=== PATIENT | female | born 1955 | race African-American/Black ===

== ENCOUNTER 2016-08-26 16:08 | Emergency (ER) | payer SELFPAY ==
[~2016-08-26] VITALS: Ht 167.6 cm; Wt 75.0 kg
[~2016-08-26 16:08] MED LIST: Z.0.NO CURRENT MEDS
[2016-08-26 16:10] VITALS: BP 120/80; PULSE 93; RESP 20; TEMP 98.5; O2SAT 96
--- NOTE | 2016-08-26 16:20 | PD ---
Physical Exam Time Seen by Provider: 16:16 Narrative 60yo F c/o BLE edema x 2 weeks. Sent by her PCP, Dr. Walter Stafford. Patient has prescription to r/o DVT. Reports paraesthesias to BLE especially for the last week. Denies diabetes. Patient seen in triage. VS reviewed. Awaiting bed placement. Data Data Last Documented VS Vital Signs Date Time Temp Pulse Resp B/P Pulse Ox O2 Delivery O2 Flow Rate FiO2 08/26/16 16:10 98.5 93 20 120/80 96 Room Air MDM Supervised Visit with THOMAS: Carol Vergara August 26, 2016 16:20
[2016-08-26] MEDS ORDERED: FURO20TA PO (17:14)
--- NOTE | 2016-08-26 17:20 | PD ---
HPI Chief Complaint: Edema Time Seen by Provider: 17:08 Travel History International Travel<30 days: No Contact w/Intl Traveler<30days: No Traveled to known affect area: No History of Present Illness HPI This is a 60-year-old female who presents for evaluation of bilateral lower extremity edema. Symptoms started 2 weeks ago. She endorses edema around her ankles, feet. She endorses occasional twinges of pain to her lower extremities. She denies any chest pain, shortness of breath, abdominal pain, nausea or vomiting. Denies any recent long travel or surgery. She does note that she has to travel on a daily basis to [place] for work. She was seen by a new primary care physician today, Dr. Walter Stafford, who has referred her here to rule out DVT according to the paper that she has from his office. She has a history of CHF and according to our records her last echo on our file was from 2009, ejection fraction 40-45%. She reports that she has been intermittently on Lasix for quite some time, seems to have been out of her Lasix 20 mg for at least 3 or 4 weeks. She has no other complaints. PFSH Past Medical History Cardiovascular Problems: Yes Congestive Heart Failure: Yes Diabetes: No Diminished Hearing: No Respiratory: Yes Past Surgical History Abdominal Surgery: Yes (C SEC X2) Section: Yes Social History Alcohol Use: No Tobacco Use: No Substance Use: No Allergies-Medications (Allergen,Severity, Reaction): Coded Allergies: No Known Allergies (Verified , 11/17/09) Reported Meds & Prescriptions Reported Meds & Active Scripts Active Reported Furosemide 20 Mg Tab 20 Mg PO DAILY Review of Systems Except as stated in HPI: all other systems reviewed are Neg Physical Exam Narrative GENERAL: Well-developed well-nourished female in no acute distress SKIN: Warm and dry. HEAD: Atraumatic. Normocephalic. EYES: Pupils equal and round. No scleral icterus. No injection or drainage. ENT: No nasal bleeding or discharge. Mucous membranes pink and moist. NECK: Trachea midline. No JVD. CARDIOVASCULAR: Regular rate and rhythm. No murmur appreciated. RESPIRATORY: No accessory muscle use. Clear to auscultation. Breath sounds equal bilaterally. GASTROINTESTINAL: Abdomen soft, non-tender, nondistended. Hepatic and splenic margins not palpable. MUSCULOSKELETAL: No obvious deformities. 1+ lower extremity tibial edema bilaterally. NEUROLOGICAL: Awake and alert. No obvious cranial nerve deficits. Motor grossly within normal limits. Normal speech. PSYCHIATRIC: Appropriate mood and affect; insight and judgment normal. Data Data Last Documented VS Vital Signs Date Time Temp Pulse Resp B/P Pulse Ox O2 Delivery O2 Flow Rate FiO2 08/26/16 18:20 92 16 118/78 98 Room Air 08/26/16 16:10 98.5 Orders Us Leg Venous Doppler Bilat (08/26/16 17:17) Complete Blood Count With Diff (08/26/16 17:17) Basic Metabolic Panel (Bmp) (08/26/16 17:17) Act Partial Throm Time (Ptt) (08/26/16 17:17) Prothrombin Time / Inr (Pt) (08/26/16 17:17) Labs Laboratory Tests Test 08/26/16 17:22 White Blood Count 5.6 TH/MM3 Red Blood Count 4.60 MIL/MM3 Hemoglobin 13.3 GM/DL Hematocrit 41.6 % Mean Corpuscular Volume 90.5 FL Mean Corpuscular Hemoglobin 29.0 PG Mean Corpuscular Hemoglobin 32.0 % Concent Red Cell Distribution Width 15.3 % Platelet Count 137 TH/MM3 Mean Platelet Volume 9.0 FL Neutrophils (%) (Auto) 51.2 % Lymphocytes (%) (Auto) 35.2 % Monocytes (%) (Auto) 8.9 % Eosinophils (%) (Auto) 3.6 % Basophils (%) (Auto) 1.1 % Neutrophils # (Auto) 2.9 TH/MM3 Lymphocytes # (Auto) 2.0 TH/MM3 Monocytes # (Auto) 0.5 TH/MM3 Eosinophils # (Auto) 0.2 TH/MM3 Basophils # (Auto) 0.1 TH/MM3 CBC Comment DIFF FINAL Differential Comment Prothrombin Time 13.4 SEC Prothromb Time International 1.2 RATIO Ratio Activated Partial 25.3 SEC Thromboplast Time Sodium Level 140 MEQ/L Potassium Level 3.7 MEQ/L Chloride Level 106 MEQ/L Carbon Dioxide Level 28.7 MEQ/L Anion Gap 5 MEQ/L Blood Urea Nitrogen 13 MG/DL Creatinine 0.68 MG/DL Estimat Glomerular Filtration 107 ML/MIN Rate Random Glucose 96 MG/DL Calcium Level 8.7 MG/DL [facility] Medical Decision Making Medical Screen Exam Complete: Yes Emergency Medical Condition: Yes Medical Record Reviewed: Yes Differential Diagnosis Dependent edema, CHF, bilateral DVT Narrative Course 60-year-old female with history of CHF who has been off of Lasix for at least 3 weeks. She presents with 2 weeks of bilateral lower extremity edema. She was sent here by Dr. Stafford to rule out bilateral DVT. Physical examination is reassuring. She has 1+ pitting edema to the lower extremities. She has no evidence of pulmonary edema. I suspect her edema is secondary to CHF. Plan would be to perform bilateral Doppler ultrasound of the legs. Ultrasound was negative. Lab work is reassuring. Stable for discharge. Diagnosis Primary Impression: Lower extremity edema Additional Instructions: Elevate the legs as needed. Compression stockings. Lasix as prescribed. Follow-up with your primary care physician. Return for any emergent medical conditions. Med/Other Pt SpecificInfo: No Change to Meds Disposition: 01 DISCHARGE HOME Condition: Stable Jamie Jacobsen August 26, 2016 17:20
[2016-08-26 17:43] LABS: AUTOMATED NEUTROPHIL # 2.9 TH/MM3 (1.8-7.7); BASOPHIL # 0.1 TH/MM3 (0-0.2); BASOPHIL % 1.1 % (0.0-2.0); EOSINOPHIL # 0.2 TH/MM3 (0-0.4); EOSINOPHIL % 3.6 % (0.0-4.0); HEMATOCRIT 41.6 % (35.0-46.0); HEMO FLAGS DIFF FINAL; LYMPH % 35.2 % (9.0-44.0); MEAN CELL VOLUME 90.5 FL (80.0-100.0); MONO % 8.9 % (0.0-8.0); NEUT % 51.2 % (16.0-70.0); PLATELET COUNT 137 TH/MM3 (150-450); RED CELL DISTRIBUTION WIDTH 15.3 % (11.6-17.2); WHITE BLOOD COUNT 5.6 TH/MM3 (4.0-11.0)
[2016-08-26 17:56] LABS: APTT (PATIENT) 25.3 SEC (24.3-30.1); INTERNATIONAL NORMALIZED RATIO 1.2 RATIO; PROTHROMBIN TIME - PATIENT 13.4 SEC (9.8-11.6)
--- NOTE | 2016-08-26 17:57 | PD ---
Physical Exam Narrative I, Dr. De Jesus, have reviewed the advance practice practitioner's documentation and am in agreement, met with the patient face to face, made the diagnosis, and the medical decision making was done by me. *My assessment and Findings: Bilateral lower extremity secondary to CHF vs. venous stasis vs. Bilateral DVT (very unlikely) 60yo F with CHF sent in by her new PMD Dr. Walter Stafford to the ED for US to r/o DVT. Pt denies any chest pain or sob. Will do US although unlikely that she has bilateral DVT. Labs reviewed, mild thrombocytopenia. US bilateral lower ext negative for DVT. Pt already has lasix that she picked up from pharmacy. Instructed pt to take her medication and follow up with her PMD. Data Data Last Documented VS Vital Signs Date Time Temp Pulse Resp B/P Pulse Ox O2 Delivery O2 Flow Rate FiO2 08/26/16 18:20 92 16 118/78 98 Room Air 08/26/16 16:10 98.5 Orders Us Leg Venous Doppler Bilat (08/26/16 17:17) Complete Blood Count With Diff (08/26/16 17:17) Basic Metabolic Panel (Bmp) (08/26/16 17:17) Act Partial Throm Time (Ptt) (08/26/16 17:17) Prothrombin Time / Inr (Pt) (08/26/16 17:17) Labs Laboratory Tests Test 08/26/16 17:22 White Blood Count 5.6 TH/MM3 Red Blood Count 4.60 MIL/MM3 Hemoglobin 13.3 GM/DL Hematocrit 41.6 % Mean Corpuscular Volume 90.5 FL Mean Corpuscular Hemoglobin 29.0 PG Mean Corpuscular Hemoglobin 32.0 % Concent Red Cell Distribution Width 15.3 % Platelet Count 137 TH/MM3 Mean Platelet Volume 9.0 FL Neutrophils (%) (Auto) 51.2 % Lymphocytes (%) (Auto) 35.2 % Monocytes (%) (Auto) 8.9 % Eosinophils (%) (Auto) 3.6 % Basophils (%) (Auto) 1.1 % Neutrophils # (Auto) 2.9 TH/MM3 Lymphocytes # (Auto) 2.0 TH/MM3 Monocytes # (Auto) 0.5 TH/MM3 Eosinophils # (Auto) 0.2 TH/MM3 Basophils # (Auto) 0.1 TH/MM3 CBC Comment DIFF FINAL Differential Comment Prothrombin Time 13.4 SEC Prothromb Time International 1.2 RATIO Ratio Activated Partial 25.3 SEC Thromboplast Time Sodium Level 140 MEQ/L Potassium Level 3.7 MEQ/L Chloride Level 106 MEQ/L Carbon Dioxide Level 28.7 MEQ/L Anion Gap 5 MEQ/L Blood Urea Nitrogen 13 MG/DL Creatinine 0.68 MG/DL Estimat Glomerular Filtration 107 ML/MIN Rate Random Glucose 96 MG/DL Calcium Level 8.7 MG/DL MDM Supervised Visit with THOMAS: Yes Diagnosis Primary Impression: Lower extremity edema Nazia De Jesus DO August 26, 2016 17:57
[2016-08-26 18:07] LABS: BICARBONATE 28.7 MEQ/L (21.0-32.0); POTASSIUM 3.7 MEQ/L (3.5-5.1)
[2016-08-26 18:20] VITALS: BP 118/78; PULSE 92; RESP 16; O2SAT 98
--- NOTE | 2016-08-26 20:14 | RADRPT ---
EXAM DATE/TIME: 08/26/2016 19:25 [facility] COMPARISON: US LEG BILATERAL VENOUS DOPPLER, November 17, 2009, 18:59. INDICATIONS : Bilateral leg edema. MEDICAL HISTORY : Congestive heart failure. Respiratory disorders. SURGICAL HISTORY : section. ENCOUNTER: Initial ACUITY: 1 week PAIN SCORE: 0/10 LOCATION: Bilateral leg. TECHNIQUE: Venous ultrasound of the left and right leg was performed from the inguinal ligament to the proximal calf. Real-time, color Doppler and spectral tracing, compression and augmentation techniques were us ed. FINDINGS: RIGHT LEG: There is normal compressibility of the deep venous system from the inguinal region to the proximal ca lf. No echogenic clot is seen in the lumen of the common femoral, femoral, popliteal, and posterior tibial veins. There is a normal response of the venous system to proximal and distal augmentation an d respiration. LEFT LEG: There is normal compressibility of the deep venous system from the inguinal region to the proximal ca lf. No echogenic clot is seen in the lumen of the common femoral, femoral, popliteal, and posterior tibial veins. There is a normal response of the venous system to proximal and distal augmentation an d respiration. CONCLUSION: Normal examination. Luis Ramos Jr., MD on August 26, 2016 at 20:11 Board Certified Radiologist. This report was verified electronically.
== END 2016-08-26 20:28 | disposition home or self-care (01) ==
LOC: NEPD 16:08
DX: R60.0 Localized edema (principal); I50.9 Heart failure, unspecified; Z79.899 Other long term (current) drug therapy
CPT/HCPCS: 80048; 85025; 85610; 85730; 93970

== ENCOUNTER 2016-10-22 17:43 | Inpatient (IN) | payer OTHER ==
[~2016-10-22] VITALS: Ht 165.1 cm; Wt 84.0 kg
[~2016-10-22 17:43] MED LIST changes: +FURO20TA PO; -Z.0.NO CURRENT MEDS
[2016-10-22 17:45] VITALS: BP 115/87; PULSE 119; RESP 20; TEMP 98.8; O2SAT 98
--- NOTE | 2016-10-22 17:57 | PD ---
Physical Exam Time Seen by Provider: 17:56 Narrative 60 y/o female here confusion, weakness, fatigue for 9 days. Symptoms started after beginning metoprolol. She now has some edema in the feet as well. Vital signs reviewed. Seen at triage desk. Awaiting bed placement. Data Data Last Documented VS Vital Signs Date Time Temp Pulse Resp B/P Pulse Ox O2 Delivery O2 Flow Rate FiO2 10/22/16 17:45 98.8 119 20 115/87 98 Room Air [facility] Medical Record Reviewed: Yes Supervised Visit with THOMAS: Jamie Lopes Oct 22, 2016 17:57
--- NOTE | 2016-10-22 19:42 | PD ---
HPI . b/l leg edema Chief Complaint: Cardiac Complaint Time Seen by Provider: 19:42 Travel History International Travel<30 days: No Contact w/Intl Traveler<30days: No Traveled to known affect area: No History of Present Illness HPI 60-year-old female with history of hypertension, CHF, and old MA here with complaints of bilateral lower extremity edema. Patient says that her legs have been swollen and she would like us to look at them. Per her family patient was just seen by her primary care provider and advised to come to the hospital due to confusion, sleeping all day, short term memory loss, slow speech, swelling of her feet and sweating. We all of these symptoms started after she started metoprolol daily on October 13, 2016. Since then her metoprolol was recently stopped on October 20. Patient tells me that she had another doctor tell her to stop all of her medications and she is not been taking them for about a week. Per her daughter patient has been taking medications and recently only stopped her metoprolol. She was on antibiotics for a short period of time, but has since stopped. No one in the room no exactly why she has been taking antibiotics. Patient is demented and is a very poor historian. The family members are also somewhat poor historians. At the time of examination, patient denies any chest pain, shortness of breath, headache, changes in her bowel or bladder function. Her chief complaint appears to be pedal edema. PFSH Past Medical History Cardiovascular Problems: Yes Congestive Heart Failure: Yes Diabetes: No Diminished Hearing: No Respiratory: Yes Past Surgical History Abdominal Surgery: Yes (C SEC X2) Section: Yes Social History Alcohol Use: No Tobacco Use: No Substance Use: No Allergies-Medications (Allergen,Severity, Reaction): Coded Allergies: No Known Allergies (Verified , 11/17/09) Reported Meds & Prescriptions Reported Meds & Active Scripts Active Reported Potassium Chloride ER (Potassium Chloride) 10 Meq Tab 10 Meq PO DAILY Metoprolol Tartrate 50 Mg Tab 50 Mg PO DAILY Furosemide 20 Mg Tab 20 Mg PO DAILY Review of Systems General / Constitutional: No: Fever Eyes: No: Visual changes HENT: No: Headaches Cardiovascular: Positive: Edema (pedal), No: Chest Pain or Discomfort Respiratory: No: Shortness of Breath Gastrointestinal: No: Abdominal Pain Genitourinary: No: Dysuria Musculoskeletal: No: Pain Skin: No Rash Neurologic: No: Weakness Psychiatric: No: Depression Endocrine: No: Polydipsia Hematologic/Lymphatic: No: Easy Bruising Physical Exam Narrative GENERAL: AAO x 2, no acute distress, Well-nourished, well-developed patient. SKIN: Warm and dry. No visible rashes or bruising. HEAD: Normocephalic and atraumatic. EYES: No scleral icterus. No injection or drainage. EOM intact, PERRLA ENT: No nasal drainage noted. Mucous membranes pink. Airway patent. NECK: Supple, trachea midline. No JVD. CARDIOVASCULAR: Tachycardic on examination, loud 3/6 murmur over mitral valve. RESPIRATORY: Breath sounds equal bilaterally. No accessory muscle use. No rhonchi or rales. GASTROINTESTINAL: Abdomen soft, non-tender, nondistended. EXTREMITIES: No cyanosis or edema. BACK: No deformity. NEURO: CN II-12 intact, metal grader strength normal b/l, UE and LE 5/5, no focal deficits PSYCH: AAO x2, normal affect. Data Data Last Documented VS Vital Signs Date Time Temp Pulse Resp B/P Pulse Ox O2 Delivery O2 Flow Rate FiO2 10/22/16 21:18 97 Room Air 10/22/16 20:26 102 119/85 114/80 10/22/16 17:45 98.8 20 Orders Electrocardiogram (10/22/16 19:53) Basic Metabolic Panel (Bmp) (10/22/16 19:53) Ckmb (Isoenzyme) Profile (10/22/16 19:53) Complete Blood Count With Diff (10/22/16 19:53) Magnesium (Mg) (10/22/16 19:53) Prothrombin Time / Inr (Pt) (10/22/16 19:53) Act Partial Throm Time (Ptt) (10/22/16 19:53) Troponin I (10/22/16 19:53) Chest, Single Ap (10/22/16 19:53) Ecg Monitoring (10/22/16 19:53) Bilateral Bp Monitoring (10/22/16 19:53) Iv Access Insert/Monitor (10/22/16 19:53) Oximetry (10/22/16 19:53) Oxygen Administration (10/22/16 19:53) Sodium Chloride 0.9% Flush (Ns Flush) (10/22/16 20:00) Ct Brain W/O Iv Contrast(Rout) (10/22/16 19:53) Sodium Chloride 0.9% Flush (Ns Flush) (10/22/16 20:00) Urinalysis - C+S If Indicated (10/22/16 19:53) CKMB (10/22/16 20:00) CKMB% (10/22/16 20:00) Admit Order (Ed Use Only) (10/22/16 21:52) Labs Laboratory Tests Test 10/22/16 10/22/16 20:00 21:18 White Blood Count 6.1 TH/MM3 Red Blood Count 5.28 MIL/MM3 Hemoglobin 15.8 GM/DL Hematocrit 48.7 % Mean Corpuscular Volume 92.1 FL Mean Corpuscular Hemoglobin 29.9 PG Mean Corpuscular Hemoglobin 32.5 % Concent Red Cell Distribution Width 17.5 % Platelet Count 102 TH/MM3 Mean Platelet Volume 8.4 FL Neutrophils (%) (Auto) 51.3 % Lymphocytes (%) (Auto) 36.1 % Monocytes (%) (Auto) 10.4 % Eosinophils (%) (Auto) 1.2 % Basophils (%) (Auto) 1.0 % Neutrophils # (Auto) 3.1 TH/MM3 Lymphocytes # (Auto) 2.2 TH/MM3 Monocytes # (Auto) 0.6 TH/MM3 Eosinophils # (Auto) 0.1 TH/MM3 Basophils # (Auto) 0.1 TH/MM3 CBC Comment DIFF FINAL Differential Comment Prothrombin Time 14.9 SEC Prothromb Time International 1.3 RATIO Ratio Activated Partial 26.3 SEC Thromboplast Time Sodium Level 137 MEQ/L Potassium Level 5.3 MEQ/L Chloride Level 103 MEQ/L Carbon Dioxide Level 22.9 MEQ/L Anion Gap 11 MEQ/L Blood Urea Nitrogen 28 MG/DL Creatinine 1.07 MG/DL Estimat Glomerular Filtration 63 ML/MIN Rate Random Glucose 80 MG/DL Calcium Level 8.9 MG/DL Magnesium Level 2.4 MG/DL Total Creatine Kinase 217 U/L Troponin I 0.51 NG/ML Urine Color YELLOW Urine Turbidity CLEAR Urine pH 5.5 Urine Specific [place] 1.013 Urine Protein 30 mg/dL Urine Glucose (UA) NEG mg/dL Urine Ketones NEG mg/dL Urine Occult Blood SMALL Urine Nitrite NEG Urine Bilirubin NEG Urine Urobilinogen LESS THAN 2.0 MG/DL Urine Leukocyte Esterase NEG Urine RBC 3 /hpf Urine WBC 1 /hpf Urine Squamous Epithelial 1 /hpf Cells Urine Bacteria OCC /hpf Urine Mucus FEW /lpf Microscopic Urinalysis Comment CULT NOT INDICATED MDM Medical Decision Making Medical Screen Exam Complete: Yes Emergency Medical Condition: Yes Medical Record Reviewed: Yes Differential Diagnosis pedal edema due to CHF, arrhythmia, UTI, adverse effect of metoprolol, ACS, less likely CVA Narrative Course 60-year-old female here with personal complaints of bilateral pedal edema. Family is reporting a whole another set of symptoms including confusion, sweating, somnolence, short term memory loss, slow speech and swelling of the feet. Case has been discussed with Dr. Lord. IV access was obtained and patient was placed on continuous cardiac monitoring. EKG, labs, chest x-ray and CT of the brain has been ordered. EKG with A fib, which appears to be new. Last Impressions Head CT 10/22/161952 Signed Impressions: Service Date/Time: , October 22, 2016 20:35 - CONCLUSION: Normal examination for a patient of this age. Hernesto Dukes MD Chest X-Ray 10/22/161952 Signed Impressions: Service Date/Time: September 19:50 - CONCLUSION: 1. Cardiomegaly. No focal consolidation or significant effusion. Hernesto Dukes MD Laboratory Tests Test 10/22/16 10/22/16 20:00 21:18 White Blood Count 6.1 TH/MM3 Red Blood Count 5.28 MIL/MM3 Hemoglobin 15.8 GM/DL Hematocrit 48.7 % Mean Corpuscular Volume 92.1 FL Mean Corpuscular Hemoglobin 29.9 PG Mean Corpuscular Hemoglobin 32.5 % Concent Red Cell Distribution Width 17.5 % Platelet Count 102 TH/MM3 Mean Platelet Volume 8.4 FL Neutrophils (%) (Auto) 51.3 % Lymphocytes (%) (Auto) 36.1 % Monocytes (%) (Auto) 10.4 % Eosinophils (%) (Auto) 1.2 % Basophils (%) (Auto) 1.0 % Neutrophils # (Auto) 3.1 TH/MM3 Lymphocytes # (Auto) 2.2 TH/MM3 Monocytes # (Auto) 0.6 TH/MM3 Eosinophils # (Auto) 0.1 TH/MM3 Basophils # (Auto) 0.1 TH/MM3 CBC Comment DIFF FINAL Differential Comment Prothrombin Time 14.9 SEC Prothromb Time International 1.3 RATIO Ratio Activated Partial 26.3 SEC Thromboplast Time Sodium Level 137 MEQ/L Potassium Level 5.3 MEQ/L Chloride Level 103 MEQ/L Carbon Dioxide Level 22.9 MEQ/L Anion Gap 11 MEQ/L Blood Urea Nitrogen 28 MG/DL Creatinine 1.07 MG/DL Estimat Glomerular Filtration 63 ML/MIN Rate Random Glucose 80 MG/DL Calcium Level 8.9 MG/DL Magnesium Level 2.4 MG/DL Total Creatine Kinase 217 U/L Troponin I 0.51 NG/ML Urine Color YELLOW Urine Turbidity CLEAR Urine pH 5.5 Urine Specific [place] 1.013 Urine Protein 30 mg/dL Urine Glucose (UA) NEG mg/dL Urine Ketones NEG mg/dL Urine Occult Blood SMALL Urine Nitrite NEG Urine Bilirubin NEG Urine Urobilinogen LESS THAN 2.0 MG/DL Urine Leukocyte Esterase NEG Urine RBC 3 /hpf Urine WBC 1 /hpf Urine Squamous Epithelial 1 /hpf Cells Urine Bacteria OCC /hpf Urine Mucus FEW /lpf Microscopic Urinalysis Comment CULT NOT INDICATED Case has been discussed with Dr. Lord. We have recommended admission due to new onset a fib and elevated troponin, which is likely related to patient's HR and CHF. Case discussed with Michael Brandt PA-C, who will resume care of this patient. I discussed all results and findings with patient, her sister Aga and daughter who were at bedside. All of their questions were answered. Patient thanked me for her care. Diagnosis Primary Impression: New onset a-fib Additional Impression: Elevated troponin Admitting Information Admitting Physician Requests: Admit Condition: Stable Emma Rehman Oct 22, 2016 19:42
[2016-10-22] MEDS ORDERED: METO50TA PO (19:47)
[2016-10-22] MEDS ORDERED: POTA10TA2 PO (19:47)
[2016-10-22 19:48] VITALS: BP 119/85; PULSE 115; O2SAT 100
[2016-10-22] MEDS ORDERED: SODIUM CHLORIDE 0.9% FLUSH 10 ML FLUSH IVF PRN ×2 (20:00)
[2016-10-22 20:23] LABS: AUTOMATED NEUTROPHIL # 3.1 TH/MM3 (1.8-7.7); BASOPHIL # 0.1 TH/MM3 (0-0.2); EOSINOPHIL # 0.1 TH/MM3 (0-0.4); EOSINOPHIL % 1.2 % (0.0-4.0); HEMATOCRIT 48.7 % (35.0-46.0); HEMO FLAGS DIFF FINAL; LYMPH % 36.1 % (9.0-44.0); LYMPHOCYTE # 2.2 TH/MM3 (1.0-4.8); MEAN CELL VOLUME 92.1 FL (80.0-100.0); MEAN CORPUSCULAR HEMOGLOBIN 29.9 PG (27.0-34.0); MEAN CORPUSCULAR HGB CONC 32.5 % (32.0-36.0); MONO % 10.4 % (0.0-8.0); NEUT % 51.3 % (16.0-70.0); PLATELET COUNT 102 TH/MM3 (150-450); RED BLOOD COUNT 5.28 MIL/MM3 (4.00-5.30); RED CELL DISTRIBUTION WIDTH 17.5 % (11.6-17.2); WHITE BLOOD COUNT 6.1 TH/MM3 (4.0-11.0)
[2016-10-22 20:26] VITALS: BP_SYST 114; BP_SYST 119; BP_DIAS 80; BP_DIAS 85; PULSE 102; O2SAT 97
--- NOTE | 2016-10-22 20:26 | RADRPT ---
EXAM DATE/TIME: 10/22/2016 19:50 [facility] COMPARISON: CHEST SINGLE AP, November 17, 2009, 18:01. INDICATIONS : Chest pain MEDICAL HISTORY : Hypertension. SURGICAL HISTORY : None. ENCOUNTER: Initial ACUITY: 1 day PAIN SCORE: 0/10 LOCATION: chest FINDINGS: Heart size is enlarged. No effusion. No pneumothorax. No significant consolidation of the lungs. CONCLUSION: 1. Cardiomegaly. No focal consolidation or significant effusion. Hernesto Dukes MD on October 22, 2016 at 20:23 Board Certified Radiologist. This report was verified electronically.
[2016-10-22 20:34] LABS: APTT (PATIENT) 26.3 SEC (24.3-30.1); INTERNATIONAL NORMALIZED RATIO 1.3 RATIO; PROTHROMBIN TIME - PATIENT 14.9 SEC (9.8-11.6)
--- NOTE | 2016-10-22 21:08 | RADRPT ---
EXAM DATE/TIME: 10/22/2016 20:35 [facility] COMPARISON: No previous studies available for comparison. INDICATIONS : Cephalgia. RADIATION DOSE: 32.83 CTDIvol (mGy) MEDICAL HISTORY : Cardiovascular disease. SURGICAL HISTORY : None. ENCOUNTER: Initial ACUITY: 1 day PAIN SCALE: 8/10 LOCATION: cranial TECHNIQUE: Multiple contiguous axial images were obtained of the head. Using automated exposure control and adj ustment of the mA and/or kV according to patient size, radiation dose was kept as low as reasonably a chievable to obtain optimal diagnostic quality images. DICOM format image data is available electro nically for review and comparison. FINDINGS: CEREBRUM: The ventricles are normal for age. No evidence of midline shift, mass lesion, hemorrhage or acute in farction. No extra-axial fluid collections are seen. POSTERIOR FOSSA: The cerebellum and brainstem are intact. The 4th ventricle is midline. The cerebellopontine angle i s unremarkable. EXTRACRANIAL: The visualized portion of the orbits is intact. SKULL: The calvaria is intact. No evidence of skull fracture. CONCLUSION: Normal examination for a patient of this age. Hernesto Dukes MD on October 22, 2016 at 21:05 Board Certified Radiologist. This report was verified electronically.
[2016-10-22 21:17] LABS: BICARBONATE 22.9 MEQ/L (21.0-32.0); MAGNESIUM 2.4 MG/DL (1.5-2.5); POTASSIUM 5.3 MEQ/L (3.5-5.1)
[2016-10-22 21:35] LABS: BACTERIA, URINE OCC /hpf; BLOOD, URINE SMALL (NEG); COMMENT (UR) CULT NOT INDICATED; CULTURE IF INDICATED CULT NOT INDICATED; GLUCOSE,URINE NEG (NEG); KETONE, URINE NEG (NEG); MUCUS URINE FEW /lpf (OCC); NITRITE,URINE NEG (NEG); PH, URINE 5.5 (5.0-8.5); SQUAMOUS EPITHELIAL CELL URINE 1 /hpf (0-5); URINE COLOR YELLOW (YELLW/STRAW)
--- NOTE | 2016-10-22 21:48 | EKG ---
Date Performed: 10/22/2016 Time Performed: 19:55:51 PTAGE: 60 years EKG: ATRIAL Flutter WITH RAPID VENTRICULAR RESPONSE BORDERLINE LEFT AXIS DEVIATION POSSIBLE LEFT VENTRICULAR HYPERTROPHY Nonspecific ST T wave changes Compared to prior electrocardiogram, atrial fl utter has replaced Sinus rhythm . ABNORMAL ECG NO PREVIOUS TRACING DOCTOR: Yosef Wen Interpretating Date/Time 10/22/2016 21:46:14
[2016-10-22 22:09] LABS: CKMB 5.1 NG/ML (0.5-3.6)
[2016-10-22] MEDS ORDERED: ONDANSETRON HCL 4 MG/2 ML VIAL IVP PRN (22:15)
[2016-10-22] MEDS ORDERED: SODIUM CHLORIDE 0.9% FLUSH 10 ML FLUSH IV FLUSH PRN (22:15)
[2016-10-22] MEDS ORDERED: NALOXONE HCL 0.4 MG/ML AMP IV PRN (22:15)
[2016-10-22] MEDS ORDERED: BISACODYL 10 MG SUPP RECTAL PRN (22:15)
[2016-10-22] MEDS ORDERED: SENNOSIDES 8.6 MG TAB PO PRN (22:15)
[2016-10-22] MEDS ORDERED: ACETAMINOPHEN 325 MG TAB PO PRN ×2 (22:15)
[2016-10-22] MEDS ORDERED: ASPIRIN EC 325 MG TABEC PO STA (22:19)
[2016-10-22] MEDS: ENOXAPARIN SODIUM 80 MG/0.8 ML SYRINGE SQ SCH (22:38)
[2016-10-22 23:00] VITALS: O2SAT 97
[2016-10-23] VITALS (26 sets, daily range): BP systolic 98–114; BP diastolic 72–86; PULSE 86–114; RESP 18; TEMP 97.9–98.3; O2SAT 95–100
[2016-10-23 04:52] LABS: BICARBONATE 25.8 MEQ/L (21.0-32.0); HDL CHOLESTEROL 38.9 MG/DL (40.0-60.0); POTASSIUM 4.4 MEQ/L (3.5-5.1)
[2016-10-23] MEDS: DILTIAZEM HCL 30 MG TAB PO SCH ×5 (06:10→21:05)
--- NOTE | 2016-10-23 06:55 | MH ---
cc: CHARLYARNAUD DATE OF ADMISSION: 10/22/2016 TIME OF EVALUATION 22:45 PRIMARY CARE PHYSICIAN MD Jaime Núñez MD HISTORY OF PRESENT ILLNESS This is a 60-year-old female who is not a great historian. She is actually fairly forgetful at this time. Her sister is at the bedside and helps supplement some of the history. The apparently has been dealing with high blood pressure for sometime. She has been on some blood pressure medicine; she is not sure which one. She has developed edema in her legs and was recent started on Lasix and potassium. She has also been on antibiotics recently but it is unclear what for (penicillin VK). The patient does not remember what kind of infection she had. The patient was apparently seen by Dr. Stafford today and told to come to the emergency room. The patient denies having chest pain or pressure. She believes her legs have been swollen for about one week. She is not short of breath. She is not having nausea or vomiting. Her appetite has been stable. She does have some palpitations. She thinks her blood pressure may have been low but could not tell me how low. Her sister states that a week ago her mental status was normal but over the past week she noticed that she seems to drift off when she is talking and she has noticed that she has become confused. MEDICATIONS ON ADMISSION Please see the chart. ALLERGIES None. PAST MEDICAL HISTORY Heart trouble (believed to be CHF). PAST SURGICAL HISTORY x 2. SOCIAL HISTORY Not . Lives with her daughter. Denies tobacco or alcohol. Still drives. Does not use a cane or a walker. FAMILY HISTORY Noncontributory to this admission. REVIEW OF SYSTEMS Not very reliable because of the patient's forgetfulness. PHYSICAL EXAMINATION VITAL SIGNS: Pulse is ranging between 100 to 125 and irregular. She was afebrile; last blood pressure 119/85, O2 sat 97% on room air. GENERAL: This is a 60-year-old female resting comfortably in bed. Her sister is at the bedside. She is in no distress. HEENT: No jaundice. Mucous membranes are moist. NECK: Supple. CARDIOVASCULAR SYSTEM: Irregularly irregular, tachycardic. RESPIRATORY SYSTEM: Lungs are clear. GASTROINTESTINAL SYSTEM: Abdomen appears mildly distended. There is no point tenderness, guarding or rebound. SYSTEM: No CVA tenderness, no suprapubic tenderness. MUSCULOSKELETAL SYSTEM: +1 edema mainly in the upper calves. Trace edema in the feet around the ankle. NEUROLOGICAL EXAM: The patient is awake and alert. She is pleasant. She does not know the year, the day, the date or the President. She did know what month it is. Her speech is clear and fluent. There is no facial asymmetry. Limbs are intact. Tongue is midline. Charger is 5/5. Fine motor control is grossly intact with [id number]. Dorsi and plantar flexion within normal limits. Gait and station is not tested. INVESTIGATIONS EKG on admission shows A-flutter with rapid ventricular response, borderline left axis deviation, left ventricular hypertrophy, non-specific ST-wave changes. Chest x-ray shows cardiomegaly; no consolidation or effusion. CT of the brain - Normal. CBC - White count 6.1, hemoglobin 15.8, platelets are 102. INR is 1.3. Sodium 137, potassium 5.3, BUN 28, creatinine 1.07. GFR is 63. Troponin is 0.51, CPK is 217, CKMB 5.1, fractionated is 2.4. Urinalysis shows protein at 30, occult blood small. Culture is not indicated. IMPRESSION 1. New onset atrial fibrillation with rapid ventricular response. 2. Lower extremity edema. 3. Elevated troponin. 4. Hyperkalemia. 5. Thrombocytopenia. 6. Mild cognitive impairment. DISCUSSION The patient is admitted to Dr. Alatorre's service. The patient meets inpatient criteria due to her new onset A-fib with RVR, her edema, her electrolyte abnormalities and her cognitive impairment without which hospitalization she would be at high risk of going into congestive heart failure, having a heart attack or stroke. During her hospital stay she will be started on Lovenox 1 mg/kg subcu twice per day. She will be started on aspirin. Serial troponins and CPKs will be run. She will be monitored on telemetry. We will get another EKG in the morning. We will check an echocardiogram. We will consult Cardiology operations clerk. We will gently diurese her. We will hold potassium and monitor her electrolytes. We will check liver enzymes, check a pro BNP, ammonia level and some further labs because of what appears to be cognitive impairment. We will also consult Neurology operations clerk to assist with her memory impairment. Anticipated length of stay is 3 days. Anticipated discharge is home. Dictated by: Jam Brandt PA-C MD GEOFFREY Flores/RODRIGO /11:18 PM /6:26 AM
--- NOTE | 2016-10-23 07:48 | EKG ---
Date Performed: 10/23/2016 Time Performed: 06:32:18 PTAGE: 60 years EKG: Atrial flutter with rapid ventricular response Possible left ventricular hypertrophy Inferi or/lateral ST-T changes may be due to hypertrophy and/or ischemia Abnormal ECG No significant change from prior electrocardiogram. PREVIOUS TRACING : 10/22/2016 19.55 DOCTOR: Yosef Wen Interpretating Date/Time 10/23/2016 07:47:21
--- NOTE | 2016-10-23 08:21 | PD.CONS ---
HPI Service cardiology Consult Requested By Reason for Consult afib RVR, elevated troponin Primary Care Physician Walter Stafford MD History of Present Illness 60 yo AAF with presented to ED yesterday on direction from her PCP, Dr. Stafford for elevated HR. Patient is a poor historian and may have mild cognitive impairment, accompanied by sister who does not know about her medical history. She presented with aflutter RVR, HR 123 along with elevated potassium and troponin. Reported medications included potassium and furosemide. She has started on diltiazem 30mg QID and potassium tab held. She denies history of cardiac problems, no chest pain, SOB or palpitation. (Aracely Comer) Review of Systems Consitutional: DENIES: Fever, Chills, Weight gain Respiratory: DENIES: Cough, Snoring, Shortness of breath, Wheezing, Sputum production Cardiovascular: COMPLAINS OF: See HPI, DENIES: Chest pain, Palpitations, Syncope, Tachycardia Gastrointestinal: DENIES: Nausea, Vomiting, Change in bowel habits, Reflux, Bloody stools, Melena (Aracely Comer) Past Family Social History Allergies: Coded Allergies: No Known Allergies (Verified , 11/17/09) Past Medical History hypertension Past Surgical History none reported Reported Medications Reported Meds & Active Scripts Active Reported Potassium Chloride ER (Potassium Chloride) 10 Meq Tab 10 Meq PO DAILY Metoprolol Tartrate 50 Mg Tab 50 Mg PO DAILY Furosemide 20 Mg Tab 20 Mg PO DAILY Active Ordered Medications Current Medications Medications (Trade) Dose Ordered Sig/Misael Route Start Time Stop Time Status Last Admin (NS Flush) 2 ml UNSCH PRN IVF 10/22/16 20:00 (NS Flush) 2 ml UNSCH PRN IV FLUSH 10/22/16 22:15 (Tylenol) 650 mg Q4H PRN PO 10/22/16 22:15 (Zofran Inj) 4 mg Q6H PRN IVP 10/22/16 22:15 (Tylenol) 650 mg Q6H PRN PO 10/22/16 22:15 (Narcan Inj) 0.4 mg UNSCH PRN IV 10/22/16 22:15 (Senokot) 17.2 mg Q12H PRN PO 10/22/16 22:15 (Dulcolax Supp) 10 mg DAILY PRN RECTAL 10/22/16 22:15 (Lovenox Inj) 70 mg Q12H SQ 10/22/16 23:00 10/22/16 22:38 (Pepcid) 20 mg BID PO 10/23/16 09:00 (Cardizem) 30 mg QID PO 10/23/16 05:30 10/23/16 06:10 Family History non-contributory Social History denies etoh, illicit drugs or tobacco (Aracely Comer) Physical Exam Vital Signs Vital Signs Date Time Temp Pulse Resp B/P Pulse Ox O2 Delivery O2 Flow Rate FiO2 10/23/16 07:00 103 10/23/16 05:04 103 10/23/16 04:00 110 10/23/16 03:42 98.0 108 99/77 97 10/23/16 03:00 100 10/23/16 02:00 112 10/23/16 01:00 99 10/23/16 00:30 97.9 103 106/84 98 10/22/16 23:00 97 10/22/16 21:18 97 Room Air 10/22/16 20:26 102 119/85 97 Room Air 114/80 10/22/16 20:19 Room Air 10/22/16 20:19 Room Air 10/22/16 19:48 115 119/85 100 Room Air 10/22/16 17:45 98.8 119 20 115/87 98 Room Air Physical Exam HEAD: Atraumatic. Normocephalic. EYES: Pupils equal and round. ENT: No nasal bleeding or discharge. Mucous membranes pink and moist. NECK: Trachea midline. No JVD. CARDIOVASCULAR: Irregular rate and rhythm with frequent PVCs, + systolic murmur LUSB II/ RESPIRATORY: No accessory muscle use. Clear to auscultation. Breath sounds equal bilaterally. GASTROINTESTINAL: Abdomen soft, non-tender, nondistended. MUSCULOSKELETAL: Extremities without clubbing, cyanosis, or edema. No obvious deformities. NEUROLOGICAL: Awake and alert. No obvious cranial nerve deficits. Normal speech. PSYCHIATRIC: Appropriate mood and affect Laboratory Laboratory Tests Test 10/22/16 10/22/16 10/23/16 20:00 21:18 03:29 White Blood Count 6.1 Red Blood Count 5.28 Hemoglobin 15.8 Hematocrit 48.7 Mean Corpuscular Volume 92.1 Mean Corpuscular Hemoglobin 29.9 Mean Corpuscular Hemoglobin 32.5 Concent Red Cell Distribution Width 17.5 Platelet Count 102 Mean Platelet Volume 8.4 Neutrophils (%) (Auto) 51.3 Lymphocytes (%) (Auto) 36.1 Monocytes (%) (Auto) 10.4 Eosinophils (%) (Auto) 1.2 Basophils (%) (Auto) 1.0 Neutrophils # (Auto) 3.1 Lymphocytes # (Auto) 2.2 Monocytes # (Auto) 0.6 Eosinophils # (Auto) 0.1 Basophils # (Auto) 0.1 CBC Comment DIFF FINAL Differential Comment Prothrombin Time 14.9 Prothromb Time International 1.3 Ratio Activated Partial 26.3 Thromboplast Time Sodium Level 137 139 Potassium Level 5.3 4.4 Chloride Level 103 106 Carbon Dioxide Level 22.9 25.8 Anion Gap 11 7 Blood Urea Nitrogen 28 24 Creatinine 1.07 1.01 Estimat Glomerular Filtration 63 68 Rate Random Glucose 80 89 Calcium Level 8.9 8.6 Magnesium Level 2.4 Total Creatine Kinase 217 154 Creatine Kinase MB 5.1 Creatine Kinase MB % 2.4 Troponin I 0.51 0.50 B-Type Natriuretic Peptide 463 Urine Color YELLOW Urine Turbidity CLEAR Urine pH 5.5 Urine Specific Coram 1.013 Urine Protein 30 Urine Glucose (UA) NEG Urine Ketones NEG Urine Occult Blood SMALL Urine Nitrite NEG Urine Bilirubin NEG Urine Urobilinogen LESS THAN 2.0 Urine Leukocyte Esterase NEG Urine RBC 3 Urine WBC 1 Urine Squamous Epithelial 1 Cells Urine Bacteria OCC Urine Mucus FEW Microscopic Urinalysis Comment CULT NOT INDICATED Erythrocyte Sedimentation Rate 1 Ammonia 37 Triglycerides Level 73 Cholesterol Level 175 LDL Cholesterol 122 HDL Cholesterol 38.9 Cholesterol/HDL Ratio 4.49 (Aracely Comer) Result Diagram: 10/22/16199910/23/16 0329 Assessment and Plan Problem List: (1) New onset a-fib (2) Elevated troponin Assessment and Plan aflutter RVR- rate improving, frequent PVCs, +systolic murmur. will further evaluate with lexiscan to rule out ischemia. echo pending. hyperkalemia- currently normokalemic since K tab held. elevated troponin- likely demand mediated due elevated HR. (Aracely Comer) Assessment and Plan ----- afib RVR - add digoxin. SBP low to tolerate further titration of ccb. mild trop elevation. no EKG changes. no symptoms. possibly due to RVR. lexiscan to document if ischemia present murmur - 2d echo (Soto Brown MD) Aracely Comer Oct 23, 2016 08:21 Soto Brown MD Oct 23, 2016 09:38
--- NOTE | 2016-10-23 08:55 | PD.CONS ---
History of Present Illness Service Neurology Consult Requested By medical Reason for Consult confusion/stroke Primary Care Physician Walter Stafford MD History of Present Illness 60-year-old female with history of hypertension, CHF, and old CO here with complaints of bilateral lower extremity edema. States pcp asked her to come in for evaluation of fatigue, le edema. 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 lives with her daughter and grandson. denies hx of stroke, memory loss, vision loss or any weakness. found to be in afib in er. ct brain negative. + cardiomegaly on cxr. PFSH Past Medical History Cardiovascular Problems: Yes Congestive Heart Failure: Yes Past Surgical History Abdominal Surgery: Yes, Section: Yes Social History Alcohol Use: No Tobacco Use: No Substance Use: No Allergies-Medications (Allergen,Severity, Reaction): Coded Allergies: No Known Allergies (Verified , 11/17/09) Reported Meds & Prescriptions Reported Meds & Active Scripts Active Reported Potassium Chloride ER (Potassium Chloride) 10 Meq Tab 10 Meq PO DAILY Metoprolol Tartrate 50 Mg Tab 50 Mg PO DAILY Furosemide 20 Mg Tab 20 Mg PO DAILY Review of Systems as above and admit hp Review of Systems All other ROS: ROS reviewed as documented in chart Past Family Social History Allergies: Coded Allergies: No Known Allergies (Verified , 11/17/09) Active Ordered Medications Current Medications Medications (Trade) Dose Ordered Sig/Misael Route Start Time Stop Time Status Last Admin (NS Flush) 2 ml UNSCH PRN IVF 10/22/16 20:00 (NS Flush) 2 ml UNSCH PRN IV FLUSH 10/22/16 22:15 (Tylenol) 650 mg Q4H PRN PO 10/22/16 22:15 (Zofran Inj) 4 mg Q6H PRN IVP 10/22/16 22:15 (Tylenol) 650 mg Q6H PRN PO 10/22/16 22:15 (Narcan Inj) 0.4 mg UNSCH PRN IV 10/22/16 22:15 (Senokot) 17.2 mg Q12H PRN PO 10/22/16 22:15 (Dulcolax Supp) 10 mg DAILY PRN RECTAL 10/22/16 22:15 (Lovenox Inj) 70 mg Q12H SQ 10/22/16 23:00 10/22/16 22:38 (Pepcid) 20 mg BID PO 10/23/16 09:00 (Cardizem) 30 mg QID PO 10/23/16 05:30 10/23/16 06:10 Exam I&O / VS 10/22/16 10/22/16 10/23/16 15:00 23:00 07:00 Intake Total 480 ml Balance 480 ml Intake Oral 480 ml # Voids 2 Vital Signs Date Time Temp Pulse Resp B/P Pulse Ox O2 Delivery O2 Flow Rate FiO2 10/23/16 07:00 103 10/23/16 05:04 103 10/23/16 04:00 110 10/23/16 03:42 98.0 108 99/77 97 10/23/16 03:00 100 10/23/16 02:00 112 10/23/16 01:00 99 10/23/16 00:30 97.9 103 106/84 98 10/22/16 23:00 97 10/22/16 21:18 97 Room Air 10/22/16 20:26 102 119/85 97 Room Air 114/80 10/22/16 20:19 Room Air 10/22/16 20:19 Room Air 10/22/16 19:48 115 119/85 100 Room Air 10/22/16 17:45 98.8 119 20 115/87 98 Room Air General: Alert and Oriented, No acute distress Eye: EOMI Respiratory: Non-labored respirations Neurologic: Alert, Oriented, Normal sensory, Normal motor, CN II-XII intact, Gag reflex normal, Normal DTR's Psychiatric: Cooperative, Appropriate mood & affect, Normal judgement, Non- suicidal Exam Comments ox 3, slow speech but articulate. answers all questions appropriately, able to name objects, read, follows, eomi, vff, ou 3-2mm, minimal reduced rt nlf, no focal weakness Review/Management Diagnosis/Plan: (1) Encephalopathy, metabolic Plan: possible mild metabolic encephalopathy. mild dysfluency on exam r/o mca infarct with afib if imaging negative would need further outpatient cognitive testing recs mri/mra brain anticoagulation per medical/cardiology statin check b12 eeg p.t/s.t. (2) Lower extremity edema (3) New onset a-fib (4) Elevated troponin Juvencio Saleh MD Oct 23, 2016 08:55
--- NOTE | 2016-10-23 09:08 | HHI.PR ---
Subjective Remarks pt sister thinks pt seems "off" from her nml mental state. Pt denies this but does seem to have problems with recall of what has been going on with her medical condition. seems lower ext swelling for at least a week now getting better. apparently she is in process of changing doctors and there may have been some medication changes. Objective Vitals heart irreg lung cta abd s/nt ext trace to 1 plus pitting lower ext. Vital Signs Date Time Temp Pulse Resp B/P Pulse Ox O2 Delivery O2 Flow Rate FiO2 10/23/16 07:00 103 10/23/16 05:04 103 10/23/16 04:00 110 10/23/16 03:42 98.0 108 99/77 97 10/23/16 03:00 100 10/23/16 02:00 112 10/23/16 01:00 99 10/23/16 00:30 97.9 103 106/84 98 10/22/16 23:00 97 10/22/16 21:18 97 Room Air 10/22/16 20:26 102 119/85 97 Room Air 114/80 10/22/16 20:19 Room Air 10/22/16 20:19 Room Air 10/22/16 19:48 115 119/85 100 Room Air 10/22/16 17:45 98.8 119 20 115/87 98 Room Air 10/22/16 10/22/16 10/23/16 15:00 23:00 07:00 Intake Total 480 ml Balance 480 ml Intake Oral 480 ml # Voids 2 Result Diagram: 10/22/16199910/23/16 0329 A/P Problem List: (1) New onset a-fib Status: Acute Plan: Pt presents with new afib/flutter and rvr. she reports 1 week lower ext edema She gives unclear hx of changing pcp from dr Cook to dr Stafford and ?medication changes. Cognitively the pt seems to be a little confused but she denies it..Sister says she is not quite acting like herself. mri ordered to exclude embolic cva pt is getting ccb for afib..monitor her bp will likely require diuretic echo and sarita pending. cards/neuro following. (2) Elevated troponin Status: Acute Plan: see above (3) Lower extremity edema Status: Acute Plan: see above Aidan Parisi MD Oct 23, 2016 09:08
[2016-10-23] MEDS: FAMOTIDINE 20 MG TAB PO SCH ×2 (09:37→21:04)
[2016-10-23] MEDS: ENOXAPARIN SODIUM 80 MG/0.8 ML SYRINGE SQ SCH ×2 (12:46→21:06)
[2016-10-23] MEDS ORDERED: REGADENOSON INJ 0.4 MG/5 ML SYR ONE (14:51)
--- NOTE | 2016-10-23 15:14 | RADRPT ---
EXAM DATE/TIME: 10/23/2016 14:07 [facility] COMPARISON: No previous studies available for comparison. INDICATIONS : Confusion. MEDICAL HISTORY : Hypertension. SURGICAL HISTORY : section. ENCOUNTER: Initial ACUITY: 1 day PAIN SCORE: 0/10 LOCATION: Cranial TECHNIQUE: Multiplanar, multisequence MRI of the brain was performed without contrast. FINDINGS: There is moderate central and cortical atrophy with dilatation of ventricular and sulca ls spaces. There are no extra-axial fluid collections appreciated. There is no parenchymal hemorrhag e. There is no restricted diffusion to suggest an acute ischemic event. There is mild prominence to the sella. Posterior fossa is unremarkable. Orbits are unremarkable. CONCLUSION: Central and cortical atrophy. There is no evidence for an ischemic event. Robert More MD FACR on October 23, 2016 at 15:07 Board Certified Radiologist. This report was verified electronically.
--- NOTE | 2016-10-23 15:16 | RADRPT ---
EXAM DATE/TIME: 10/23/2016 14:07 [facility] COMPARISON: No previous studies available for comparison. INDICATIONS : Confusion. MEDICAL HISTORY : Hypertension. SURGICAL HISTORY : section. ENCOUNTER: Initial ACUITY: 1 day PAIN SCORE: 0/10 LOCATION: Cranial Please note a normal MRA of the brain does not entirely exclude the possibility of a small aneurysm, nor the possibility of distal intracranial vessel disease. TECHNIQUE: 3D time of flight MRA was performed. Source images, multiplanar STS MIP, and 3D volume MIP reconstru ctions were reviewed. FINDINGS: Extensive atherosclerotic disease is present. There is poor visualization of the of the A1 segment o f the anterior cerebral artery. There is poor visualization of both middle cerebral arteries of the M2 segments of both middle cerebral arteries. Basilar artery is patent. CONCLUSION: Moderate intracranial atherosclerotic vascular disease. Robert More MD FACR on October 23, 2016 at 15:08 Board Certified Radiologist. This report was verified electronically.
--- NOTE | 2016-10-23 17:03 | RADRPT ---
EXAM DATE/TIME: 10/23/2016 14:05 [facility] COMPARISON: No previous studies available for comparison. INDICATIONS : Cardiomegaly. Atrial fibrillation. Myocardial infarction. DOSE: 25.6 mCi Tc99m Myoview at stress. 8.7 mCi Tc99m Myoview at rest. 0.4 mg Lexiscan STRESS SYMPTOMS: Shortness of breath. EJECTION FRACTION: 14% MEDICAL HISTORY : Congestive hearrt failure. SURGICAL HISTORY : section. ENCOUNTER: Initial ACUITY: 1 day PAIN SCALE: 2/10 LOCATION: Bilateral chest TECHNIQUE: The patient underwent pharmacologic stress with infusion of prescribed dose. Continuous ECG tracing was monitored during stress. Gated SPECT imaging was performed after stress and conventional SPECT i maging was performed at rest. The examination was performed on a SPECT/CT scanner, both attenuation and non-corrected datasets were reviewed. FINDINGS: DISTRIBUTION: The maximum perfused segment at stress is in the lateral wall. PERFUSION STUDY: There is fixed diminished perfusion involving the anterior wall. No definite ischemia. GATED STUDY: Pronounced left ventricular chamber dilatation and severe diffuse hypokinesis. CONCLUSION: Severe LV dilatation and dysfunction. No evidence of ischemia RISK CATEGORY: High (>3% Annual Mortality Rate) Michael Gurrola MD on October 23, 2016 at 16:58 Board Certified Radiologist. This report was verified electronically.
[2016-10-23] MEDS: DIGOXIN 0.5 MG/2 ML VIAL IVS SCH ×2 (17:11→21:08)
[2016-10-23 18:32] LABS: AST (GOT) 59 U/L (15-37)
[2016-10-23 18:57] LABS: ALKALINE PHOSPHATASE 158 U/L (45-117); ALT (GPT) 43 U/L (10-53); CREATINE KINASE 172 U/L (26-192); INDIRECT BILIRUBIN 1.6 MG/DL (0.0-0.8); TOTAL BILIRUBIN ADULT 2.2 MG/DL (0.2-1.0)
[2016-10-23] MEDS: ATORVASTATIN 40 MG TAB PO SCH (21:05)
[2016-10-24] VITALS (26 sets, daily range): BP systolic 88–130; BP diastolic 49–98; PULSE 70–116; RESP 14–18; TEMP 98–98.8; O2SAT 97–100
[2016-10-24] MEDS: FAMOTIDINE 20 MG TAB PO SCH ×2 (09:00→19:56)
[2016-10-24] MEDS: DIGOXIN 0.125 MG TAB PO SCH (09:00)
--- NOTE | 2016-10-24 09:04 | PD.CARD.PN ---
Subjective Subjective Remarks The chart was reviewed and patient and daughter spoken with. The patient notes mild abdominal distention but has no chest pain, shortness of breath, edema, bleeding or other GI symptoms. Telemetry reveals controlled atrial flutter. Echocardiogram is pending. Objective Medications Reviewed Vital Signs / I&O Vital Signs Date Time Temp Pulse Resp B/P Pulse Ox O2 Delivery O2 Flow Rate FiO2 10/24/16 08:00 98.4 77 18 88/59 97 10/24/16 06:00 84 10/24/16 05:00 84 10/24/16 04:00 98.0 84 18 102/49 97 10/24/16 04:00 90 10/24/16 03:00 76 10/24/16 02:00 70 10/24/16 01:00 92 10/24/16 00:00 73 10/24/16 00:00 98.2 85 18 127/98 98 10/23/16 23:00 86 10/23/16 22:00 86 10/23/16 21:01 97 10/23/16 21:00 92 10/23/16 20:00 114 10/23/16 20:00 98.3 90 18 114/86 100 10/23/16 19:00 94 10/23/16 18:00 87 10/23/16 17:00 114 10/23/16 16:00 105 10/23/16 15:48 98.0 108 102/74 97 10/23/16 15:00 102 10/23/16 13:00 102 10/23/16 12:00 110 10/23/16 12:00 95 10/23/16 11:13 97.9 108 98/72 97 10/23/16 11:00 102 10/23/16 10:00 110 I/O 10/23/16 10/23/16 10/23/16 10/24/16 10/24/16 10/24/16 07:00 15:00 23:00 07:00 15:00 23:00 Intake Total 480 ml 825 ml 480 ml Output Total 650 ml Balance 480 ml 175 ml 480 ml Intake Oral 480 ml 825 ml 480 ml Output Urine Total 650 ml # Voids 2 30 # Bowel Movements 0 0 Physical Exam GENERAL: Well-nourished, well-developed patient in no apparent distress. SKIN: Warm and dry. NECK: JVD normal - less than or equal to 5 cm H20. CARDIOVASCULAR: Irregular rate and rhythm without gallops, or rubs. 2/6 early peaking systolic ejection murmur at the base. RESPIRATORY: Normal breath sounds - equal bilaterally. No accessory muscle use. No wheezes, rales or rubs. PERIPHERY: No cyanosis, or edema. Laboratory Laboratory Tests Test 10/23/16 10/24/16 17:05 06:52 Total Bilirubin 2.2 MG/DL Direct Bilirubin 0.6 MG/DL Indirect Bilirubin 1.6 MG/DL Aspartate Amino Transf 59 U/L (AST/SGOT) Alanine Aminotransferase 43 U/L (ALT/SGPT) Alkaline Phosphatase 158 U/L Total Creatine Kinase 172 U/L Troponin I 0.47 NG/ML Total Protein 6.6 GM/DL Albumin 2.9 GM/DL Vitamin B12 Level GREATER THAN 2000 PG/ML Thyroid Stimulating Hormone 2.180 uIU/ML 3rd Gen Digoxin Level 0.7 NG/ML Imaging Last 48 hours Impressions Myocardial Perfusion Scan Nuc Med 10/23/16 0000 Signed Impressions: Service Date/Time: Sunday, October 23, 2016 14:05 - CONCLUSION: Severe LV dilatation and dysfunction. No evidence of ischemia RISK CATEGORY: High (>3%% Annual Mortality Rate) Michael Gurrola MD Head Magnetic Resonance Angiography 10/23/16 0000 Signed Impressions: Service Date/Time: Sunday, October 23, 2016 14:07 - CONCLUSION: Moderate intracranial atherosclerotic vascular disease. Robert More MD FACR Brain MRI 10/23/16 0000 Signed Impressions: Service Date/Time: Sunday, October 23, 2016 14:07 - CONCLUSION: Central and cortical atrophy. There is no evidence for an ischemic event. Robert More MD FACR Head CT 10/22/161952 Signed Impressions: Service Date/Time: September 20:35 - CONCLUSION: Normal examination for a patient of this age. Hernesto Dukes MD Chest X-Ray 10/22/161952 Signed Impressions: Service Date/Time: September 19:50 - CONCLUSION: 1. Cardiomegaly. No focal consolidation or significant effusion. Hernesto Dukes MD Assessment and Plan Assessment and Plan Problems: Atrial flutter with rapid response Non-ST elevation NM Severe left ventricular dysfunction with systolic congestive heart failure Borderline blood pressure Recommendations: Blood pressure is too low for beta blockers or Trip inhibitors. Continue low-dose digoxin and diltiazem along with anticoagulation. Echocardiogram is pending. The patient will likely need further workup including possible catheterization early next week. All questions were answered. Yosef Wen MD Oct 24, 2016 09:04
--- NOTE | 2016-10-24 09:09 | MG ---
cc: LEWIS ALVAREZ MD Lab No: [id number] Date: 10/23/2016 Age: 60 Sex: F Race: DATE OF STUDY: 10/23/2016 DATE OF : 1955 PROCEDURE: 60-year-old female with weakness, confusion, 6 to 8 Hz posterior rhythm 20-40 microvolts, frontal beta theta activity. Mild background slowing, transition into drowsy state, followed by wakefulness off and on. Frontal myogenic artifact. No movement artifact occurring off and on, reasonably good driving with photic stimulation. Single lead EKG showing irregularly irregular rhythm. INTERPRETATION Slow alpha variant, drowsy EEG. Clinical correlation Lewis Alvarez MD MG/ /7:45 AM /9:02 AM
--- NOTE | 2016-10-24 09:26 | HHI.PR ---
Subjective Remarks no sob. thinks leg swelling much better. Objective Vitals heart irreg lung cta abd s/nt ext lower ext 1 plus pitting Vital Signs Date Time Temp Pulse Resp B/P Pulse Ox O2 Delivery O2 Flow Rate FiO2 10/24/16 08:00 98.4 77 18 88/59 97 10/24/16 06:00 84 10/24/16 05:00 84 10/24/16 04:00 98.0 84 18 102/49 97 10/24/16 04:00 90 10/24/16 03:00 76 10/24/16 02:00 70 10/24/16 01:00 92 10/24/16 00:00 73 10/24/16 00:00 98.2 85 18 127/98 98 10/23/16 23:00 86 10/23/16 22:00 86 10/23/16 21:01 97 10/23/16 21:00 92 10/23/16 20:00 114 10/23/16 20:00 98.3 90 18 114/86 100 10/23/16 19:00 94 10/23/16 18:00 87 10/23/16 17:00 114 10/23/16 16:00 105 10/23/16 15:48 98.0 108 102/74 97 10/23/16 15:00 102 10/23/16 13:00 102 10/23/16 12:00 110 10/23/16 12:00 95 10/23/16 11:13 97.9 108 98/72 97 10/23/16 11:00 102 10/23/16 10:00 110 10/23/16 10/23/16 10/24/16 14:59 22:59 06:59 Intake Total 825 ml 480 ml Output Total 650 ml Balance 175 ml 480 ml Intake Oral 825 ml 480 ml Output Urine Total 650 ml # Voids 30 # Bowel Movements 0 0 Result Diagram: 10/22/16199910/23/16 0329 A/P Problem List: (1) New onset a-fib Status: Acute Plan: Pt presents with new afib/flutter and rvr. she reports 1 week lower ext edema lexiscan shows no ischemia but EF 14% She gives unclear hx of changing pcp from dr Cook to dr tSafford and ?medication changes. Cognitively the pt seems to be a little confused but she denies it..Sister says she is not quite acting like herself....MRI brain neg for cva but mra shows atherosclerosis. need to await further cardiology decisions for low EF check 2d echo low dose lasix as she still has lower ext edema cont dig. stop ccb as bp low (2) Cardiomyopathy Status: Acute Plan: see above (3) Elevated troponin Status: Acute Plan: see above (4) Lower extremity edema Status: Acute Plan: see above Aidan Parisi MD Oct 24, 2016 09:26
[2016-10-24] MEDS ORDERED: FUROSEMIDE 20 MG TAB PO ONE (10:00)
[2016-10-24] MEDS: ENOXAPARIN SODIUM 40 MG/0.4 ML SYRINGE SQ SCH (10:00)
--- NOTE | 2016-10-24 12:41 | HHI.PR ---
Review/Management Diagnosis/Plan: (1) Encephalopathy, metabolic Plan: probable CHF encephalopathy +/- emerging alz dementia ef 14%-per cardiology recs mri/mra brain-no acute infarct but moderate atrophy; +intracranial atherosclerosis anticoagulation per medical/cardiology neuro stable; outpatient f/u with us in 1-2 weeks if imaging negative would need further outpatient cognitive testing (2) New onset a-fib Plan: oac per cardio/medical (3) Lower extremity edema Plan: related to chf (4) Elevated troponin Subjective Subjective Comments No acute events reported No headache No chest pain No dyspnea daughter at bedside and states pt's memory has declined over the past few weeks Active Medications Current Medications Medications (Trade) Dose Ordered Sig/Misael Route Start Time Stop Time Status Last Admin (NS Flush) 2 ml UNSCH PRN IVF 10/22/16 20:00 (NS Flush) 2 ml UNSCH PRN IV FLUSH 10/22/16 22:15 (Tylenol) 650 mg Q4H PRN PO 10/22/16 22:15 (Zofran Inj) 4 mg Q6H PRN IVP 10/22/16 22:15 (Tylenol) 650 mg Q6H PRN PO 10/22/16 22:15 (Narcan Inj) 0.4 mg UNSCH PRN IV 10/22/16 22:15 (Senokot) 17.2 mg Q12H PRN PO 10/22/16 22:15 (Dulcolax Supp) 10 mg DAILY PRN RECTAL 10/22/16 22:15 (Pepcid) 20 mg BID PO 10/23/16 09:00 10/24/16 09:00 (Lipitor) 40 mg HS PO 10/23/16 21:00 10/23/16 21:05 (Lanoxin) 0.125 mg DAILY PO 10/24/16 09:00 10/24/16 09:00 (Lovenox Inj) 40 mg Q24H SQ 10/24/16 10:00 10/24/16 10:00 (Lasix) 20 mg DAILY PO 10/25/16 09:00 Allergies Allergies Coded Allergies No Known Allergies (Verified11/17/09) Review of Systems All other ROS: ROS reviewed as documented in chart Exam I&O / VS 10/23/16 10/23/16 10/24/16 15:00 23:00 07:00 Intake Total 825 ml 480 ml Output Total 650 ml Balance 175 ml 480 ml Intake Oral 825 ml 480 ml Output Urine Total 650 ml # Voids 30 # Bowel Movements 0 0 Vital Signs Date Time Temp Pulse Resp B/P Pulse Ox O2 Delivery O2 Flow Rate FiO2 10/24/16 10:00 84 10/24/16 09:00 74 10/24/16 08:00 84 10/24/16 08:00 98.4 77 18 88/59 97 10/24/16 07:00 96 10/24/16 06:00 84 10/24/16 05:00 84 10/24/16 04:00 98.0 84 18 102/49 97 10/24/16 04:00 90 10/24/16 03:00 76 10/24/16 02:00 70 10/24/16 01:00 92 10/24/16 00:00 73 10/24/16 00:00 98.2 85 18 127/98 98 10/23/16 23:00 86 10/23/16 22:00 86 10/23/16 21:01 97 10/23/16 21:00 92 10/23/16 20:00 114 10/23/16 20:00 98.3 90 18 114/86 100 10/23/16 19:00 94 10/23/16 18:00 87 10/23/16 17:00 114 10/23/16 16:00 105 10/23/16 15:48 98.0 108 102/74 97 10/23/16 15:00 102 10/23/16 13:00 102 General: Alert and Oriented, No acute distress Eye: EOMI Respiratory: Non-labored respirations Neurologic: Alert, Oriented, Normal sensory, Normal motor, CN II-XII intact, Gag reflex normal, Normal DTR's Psychiatric: Cooperative, Appropriate mood & affect, Normal judgement, Non- suicidal Exam Comments ox 3, articulate, follows, eomi, vff, ou 3-2mm, no focal weakness Objective Micro and Labs Laboratory Tests Test 10/23/16 10/24/16 17:05 06:52 Total Bilirubin 2.2 Direct Bilirubin 0.6 Indirect Bilirubin 1.6 Aspartate Amino Transf 59 (AST/SGOT) Alanine Aminotransferase 43 (ALT/SGPT) Alkaline Phosphatase 158 Total Creatine Kinase 172 Troponin I 0.47 Total Protein 6.6 Albumin 2.9 Vitamin B12 Level GREATER THAN 2000 Thyroid Stimulating Hormone 2.180 3rd Gen Digoxin Level 0.7 Juvencio Saleh MD Oct 24, 2016 12:41
--- NOTE | 2016-10-24 16:05 | EKG ---
Date Performed: 10/24/2016 Time Performed: 06:13:14 PTAGE: 60 years EKG: Atrial flutter with controlled ventricular response Poor R wave progression - which may be normal variant Diffuse nonspecific ST-T change Since previous tracing, heart rate is better controlle d, otherwise no significant change. Abnormal ECG PREVIOUS TRACING : 10/23/2016 06.32 DOCTOR: Aidan Rojas Interpretating Date/Time 10/24/2016 16:03:44
--- NOTE | 2016-10-24 16:37 | ECHRPT ---
Indication: ATRIAL FIB AND FLUTTER CONCLUSIONS Moderately dilated left ventricle. Wall thickness is normal. The left ventricular systolic function is severely reduced with an estimated ejection fraction less than 20%. There is global left ventricular dysfunction. The right ventricular systoilc function is moderately decreased. The right ventricle is moderately dilated. The left atrial size is moderately dilated. The right atrial size is moderately dilated. Structurally normal mitral valve. Moderate mitral valve regurgitation. The mitral valve regurgitation jet is directed posteriorly. Structurally normal tricuspid valve. There is moderate tricuspid valve regurgitation. There is estimated mild pulmonary hypertension present (range 40-50 mmHg). [id number] pulmonary valve regurgitation. BP: / HR: Rhythm: MEASUREMENTS (Male / Female) Normal Values Technical Quality: 2D ECHO LV Diastolic Diameter PLAX 5.8 cm 4.2 - 5.9 / 3.9 - 5.3 cm LV Systolic Diameter PLAX 5.2 cm IVS Diastolic Thickness 1.0 cm 0.6 - 1.0 / 0.6 - 0.9 cm LVPW Diastolic Thickness 0.9 cm 0.6 - 1.0 / 0.6 - 0.9 cm LV Relative Wall Thickness 0.3 RV Internal Dim ED PLAX 3.2 cm M-MODE Aortic Root Diameter MM 2.9 cm LA Systolic Diameter MM 4.0 cm LA Ao Ratio MM 1.4 AV Cusp Separation MM 1.6 cm DOPPLER Mitral E Point Velocity 79.5 cm/s Mitral A Point Velocity 20.7 cm/s Mitral E to A Ratio 3.8 LV E' Lateral Velocity 12.6 cm/s Mitral E to LV E' Lateral Ratio 6.3 TR Peak Velocity 300.5 cm/s TR Peak Gradient 36.1 mmHg FINDINGS LEFT VENTRICLE Moderately dilated left ventricle. Wall thickness is normal. The left ventricular systolic function is severely reduced with an estimated ejection fraction less than 20%. There is global left ventricular dysfunction. RIGHT VENTRICLE The right ventricular systoilc function is moderately decreased. The right ventricle is moderately dilated. LEFT ATRIUM The left atrial size is moderately dilated. RIGHT ATRIUM The right atrial size is moderately dilated. ATRIAL SEPTUM Normal atrial septal thickness without atrial level shunting by limited color doppler interrogation. AORTA The aortic root and proximal ascending aorta are not well visualized. MITRAL VALVE Structurally normal mitral valve. Moderate mitral valve regurgitation. The mitral valve regurgitation jet is directed posteriorly. AORTIC VALVE Trileaflet aortic valve. No aortic valve stenosis or regurgitation. TRICUSPID VALVE Structurally normal tricuspid valve. There is moderate tricuspid valve regurgitation. There is estimated mild pulmonary hypertension present (range 40-50 mmHg). PULMONARY VALVE [id number] pulmonary valve regurgitation. VESSELS The inferior vena cava was not well visualized. PERICARDIUM There is no pericardial effusion. Soto Brown MD, FACC (Electronically Signed) Final Date:24 October 2016 16:36
[2016-10-24] MEDS: DILTIAZEM HCL 30 MG TAB PO SCH ×2 (18:10→19:55)
[2016-10-24] MEDS: ATORVASTATIN 40 MG TAB PO SCH (19:56)
[2016-10-25] VITALS (28 sets, daily range): BP systolic 104–138; BP diastolic 63–85; PULSE 67–100; RESP 14–20; TEMP 98–98.8; O2SAT 96–99
[2016-10-25 05:59] LABS: BICARBONATE 28.4 MEQ/L (21.0-32.0); POTASSIUM 5.2 MEQ/L (3.5-5.1)
--- NOTE | 2016-10-25 09:01 | PD.CARD.PN ---
Subjective Subjective Remarks The patient denies chest pain, shortness of breath, GI symptoms or bleeding. Telemetry reveals borderline controlled atrial flutter. Objective Medications Reviewed Vital Signs / I&O Vital Signs Date Time Temp Pulse Resp B/P Pulse Ox O2 Delivery O2 Flow Rate FiO2 10/25/16 06:00 88 10/25/16 05:00 100 10/25/16 04:00 86 10/25/16 03:55 98.0 89 14 110/67 99 10/25/16 03:00 86 10/25/16 02:00 88 10/25/16 01:00 86 10/25/16 00:00 87 10/24/16 23:00 106 10/24/16 23:00 98.3 88 14 114/79 100 10/24/16 22:00 106 10/24/16 21:00 116 10/24/16 20:00 87 10/24/16 19:53 98.2 88 18 98/54 99 10/24/16 19:00 94 10/24/16 18:00 98 10/24/16 17:00 112 10/24/16 16:00 92 10/24/16 16:00 98.8 89 18 97/58 100 10/24/16 15:00 104 10/24/16 14:00 84 10/24/16 13:00 104 10/24/16 12:00 86 10/24/16 12:00 98.4 97 18 130/84 99 10/24/16 11:00 93 10/24/16 10:00 84 10/24/16 09:25 94 18 115/84 99 I/O 10/24/16 10/24/16 10/24/16 10/25/16 10/25/16 10/25/16 07:00 15:00 23:00 07:00 15:00 23:00 Intake Total 480 ml 720 ml 240 ml Output Total 750 ml Balance 480 ml 720 ml -510 ml Intake Oral 480 ml 720 ml 240 ml IV Total 0 ml Output Urine Total 750 ml # Voids 30 3 # Bowel Movements 0 0 Physical Exam GENERAL: Well-nourished, well-developed patient in no apparent distress. SKIN: Warm and dry. NECK: JVD normal - less than or equal to 5 cm H20. CARDIOVASCULAR: Irregular rate and rhythm without gallops, or rubs. 2/6 early peaking systolic ejection murmur at the base. RESPIRATORY: Normal breath sounds - equal bilaterally. No accessory muscle use. No wheezes, rales or rubs. PERIPHERY: No cyanosis, or edema. Laboratory Laboratory Tests Test 10/25/16 04:59 Sodium Level 141 MEQ/L Potassium Level 5.2 MEQ/L Chloride Level 106 MEQ/L Carbon Dioxide Level 28.4 MEQ/L Anion Gap 7 MEQ/L Blood Urea Nitrogen 15 MG/DL Creatinine 1.00 MG/DL Estimat Glomerular Filtration 68 ML/MIN Rate Random Glucose 78 MG/DL Calcium Level 8.5 MG/DL Imaging Reviewed Assessment and Plan Assessment and Plan Problems: Atrial flutter with rapid response Non-ST elevation [place] Severe left ventricular dysfunction with systolic congestive heart failure Moderate mitral regurgitation Borderline blood pressure Recommendations: Blood pressure is too low for beta blockers or Trip inhibitors. Continue low-dose digoxin and diltiazem along with anticoagulation. The patient will likely need further workup including possible catheterization early next week. All questions were answered. Dr. kennedy will return tomorrow. Yosef Wen MD Oct 25, 2016 09:01
[2016-10-25] MEDS: DILTIAZEM HCL 30 MG TAB PO SCH ×4 (09:02→21:37)
[2016-10-25] MEDS: ENOXAPARIN SODIUM 40 MG/0.4 ML SYRINGE SQ SCH (09:02)
[2016-10-25] MEDS: FUROSEMIDE 20 MG TAB PO SCH (09:02)
[2016-10-25] MEDS: DIGOXIN 0.125 MG TAB PO SCH (09:02)
[2016-10-25] MEDS: FAMOTIDINE 20 MG TAB PO SCH ×2 (09:02→21:37)
--- NOTE | 2016-10-25 09:48 | HHI.PR ---
Subjective Remarks doing ok. answers questions slowly Objective Vitals heart irreg lung cta abd s/nt ext trace edema Vital Signs Date Time Temp Pulse Resp B/P Pulse Ox O2 Delivery O2 Flow Rate FiO2 10/25/16 06:00 88 10/25/16 05:00 100 10/25/16 04:00 86 10/25/16 03:55 98.0 89 14 110/67 99 10/25/16 03:00 86 10/25/16 02:00 88 10/25/16 01:00 86 10/25/16 00:00 87 10/24/16 23:00 106 10/24/16 23:00 98.3 88 14 114/79 100 10/24/16 22:00 106 10/24/16 21:00 116 10/24/16 20:00 87 10/24/16 19:53 98.2 88 18 98/54 99 10/24/16 19:00 94 10/24/16 18:00 98 10/24/16 17:00 112 10/24/16 16:00 92 10/24/16 16:00 98.8 89 18 97/58 100 10/24/16 15:00 104 10/24/16 14:00 84 10/24/16 13:00 104 10/24/16 12:00 86 10/24/16 12:00 98.4 97 18 130/84 99 10/24/16 11:00 93 10/24/16 10:00 84 10/24/16 10/24/16 10/25/16 15:00 23:00 07:00 Intake Total 720 ml 240 ml Output Total 750 ml Balance 720 ml -510 ml Intake Oral 720 ml 240 ml IV Total 0 ml Output Urine Total 750 ml # Voids 3 # Bowel Movements 0 Result Diagram: 10/22/16199910/25/16 0459 A/P Problem List: (1) New onset a-fib Status: Acute Plan: Pt presents with new afib/flutter and rvr. she reports 1 week lower ext edema lexiscan shows no ischemia but EF 14% She gives unclear hx of changing pcp from dr Cook to dr Stafford and ?medication changes. Cognitively the pt seems to be a little confused but she denies it..Sister says she is not quite acting like herself....MRI brain neg for cva but mra shows atherosclerosis. 2 d echo EF 20%. mod MVR, TVR need to await further cardiology decisions for low EF. ?[facility] low dose lasix as she still has lower ext edema cont dig. ccb as tolerated. unable to tolerate bb due to low bp. (2) Cardiomyopathy Status: Acute Plan: see above (3) Elevated troponin Status: Acute Plan: see above (4) Lower extremity edema Status: Acute Plan: see above Aidan Parisi MD Oct 25, 2016 09:48
--- NOTE | 2016-10-25 14:35 | HHI.PR ---
Review/Management Diagnosis/Plan: (1) Encephalopathy, metabolic Plan: probable CHF encephalopathy +/- emerging alz dementia ef 14%-per cardiology recs neuro stable mri/mra brain-no acute infarct but moderate atrophy; +intracranial atherosclerosis anticoagulation per medical/cardiology neuro stable; outpatient f/u with us in 1-2 weeks and further outpatient cognitive testing (2) New onset a-fib Plan: OAC for cardioembolic stroke protection per cardio/medical (3) Lower extremity edema Plan: related to chf (4) Elevated troponin Subjective Subjective Comments No acute events reported No headache No chest pain No dyspnea Active Medications Current Medications Medications (Trade) Dose Ordered Sig/Misael Route Start Time Stop Time Status Last Admin (NS Flush) 2 ml UNSCH PRN IVF 10/22/16 20:00 (NS Flush) 2 ml UNSCH PRN IV FLUSH 10/22/16 22:15 10/24/16 19:56 (Tylenol) 650 mg Q4H PRN PO 10/22/16 22:15 (Zofran Inj) 4 mg Q6H PRN IVP 10/22/16 22:15 (Tylenol) 650 mg Q6H PRN PO 10/22/16 22:15 (Narcan Inj) 0.4 mg UNSCH PRN IV 10/22/16 22:15 (Senokot) 17.2 mg Q12H PRN PO 10/22/16 22:15 (Dulcolax Supp) 10 mg DAILY PRN RECTAL 10/22/16 22:15 (Pepcid) 20 mg BID PO 10/23/16 09:00 10/25/16 09:02 (Lipitor) 40 mg HS PO 10/23/16 21:00 10/24/16 19:56 (Lanoxin) 0.125 mg DAILY PO 10/24/16 09:00 10/25/16 09:02 (Lovenox Inj) 40 mg Q24H SQ 10/24/16 10:00 10/25/16 09:02 (Lasix) 20 mg DAILY PO 10/25/16 09:00 10/25/16 09:02 (Cardizem) 30 mg QID PO 10/24/16 18:00 10/25/16 13:00 Allergies Allergies Coded Allergies No Known Allergies (11/17/09) Review of Systems All other ROS: ROS reviewed as documented in chart Exam I&O / VS 10/24/16 10/24/16 10/25/16 15:00 23:00 07:00 Intake Total 720 ml 240 ml Output Total 750 ml Balance 720 ml -510 ml Intake Oral 720 ml 240 ml IV Total 0 ml Output Urine Total 750 ml # Voids 3 # Bowel Movements 0 Vital Signs Date Time Temp Pulse Resp B/P Pulse Ox O2 Delivery O2 Flow Rate FiO2 10/25/16 13:00 80 10/25/16 12:00 86 10/25/16 12:00 98.6 16 104/63 98 10/25/16 11:00 87 10/25/16 10:03 98 21 10/25/16 10:00 80 10/25/16 09:00 90 10/25/16 08:00 98.7 90 18 123/85 98 10/25/16 08:00 96 10/25/16 07:00 93 10/25/16 06:00 88 10/25/16 05:00 100 10/25/16 04:00 86 10/25/16 03:55 98.0 89 14 110/67 99 10/25/16 03:00 86 10/25/16 02:00 88 10/25/16 01:00 86 10/25/16 00:00 87 10/24/16 23:00 106 10/24/16 23:00 98.3 88 14 114/79 100 10/24/16 22:00 106 10/24/16 21:00 116 10/24/16 20:00 87 10/24/16 19:53 98.2 88 18 98/54 99 10/24/16 19:00 94 10/24/16 18:00 98 10/24/16 17:00 112 10/24/16 16:00 92 10/24/16 16:00 98.8 89 18 97/58 100 10/24/16 15:00 104 General: Alert and Oriented, No acute distress Eye: EOMI Respiratory: Non-labored respirations Neurologic: Alert, Oriented, Normal sensory, Normal motor, CN II-XII intact, Gag reflex normal, Normal DTR's Psychiatric: Cooperative, Appropriate mood & affect, Normal judgement, Non- suicidal Exam Comments ox 3, articulate, impaired short-term recall, follows, eomi, vff, ou 3-2mm, no focal weakness Objective Micro and Labs Laboratory Tests Test 10/25/16 04:59 Sodium Level 141 Potassium Level 5.2 Chloride Level 106 Carbon Dioxide Level 28.4 Anion Gap 7 Blood Urea Nitrogen 15 Creatinine 1.00 Estimat Glomerular Filtration 68 Rate Random Glucose 78 Calcium Level 8.5 Juvencio Saleh MD Oct 25, 2016 14:35
[2016-10-25] MEDS ORDERED: ENOXAPARIN SODIUM 80 MG/0.8 ML SYRINGE SQ ONE (19:00)
[2016-10-25] MEDS: ATORVASTATIN 40 MG TAB PO SCH (21:37)
[2016-10-26] VITALS (22 sets, daily range): BP systolic 113–128; BP diastolic 68–83; PULSE 51–104; RESP 16–20; TEMP 98.1–98.2; O2SAT 97–99
[2016-10-26 06:10] LABS: BICARBONATE 27.1 MEQ/L (21.0-32.0); POTASSIUM 3.7 MEQ/L (3.5-5.1)
--- NOTE | 2016-10-26 07:29 | HHI.PR ---
Review/Management Diagnosis/Plan: (1) New onset a-fib Plan: OAC for cardioembolic stroke protection per cardio/medical given high dose lovenox await cardiac eval for possible cath this am (2) Encephalopathy, metabolic Plan: probable CHF encephalopathy +/- emerging alz dementia ef 14%-per cardiology recs neuro stable mri/mra brain-no acute infarct but moderate atrophy; +intracranial atherosclerosis anticoagulation per medical/cardiology neuro stable; outpatient f/u with us in 1-2 weeks and further outpatient cognitive testing (3) Lower extremity edema Plan: related to chf (4) Elevated troponin Subjective Subjective Comments No acute events reported; slept well no weakness No headache No chest pain No dyspnea Active Medications Current Medications Medications (Trade) Dose Ordered Sig/Misael Route Start Time Stop Time Status Last Admin (NS Flush) 2 ml UNSCH PRN IVF 10/22/16 20:00 (NS Flush) 2 ml UNSCH PRN IV FLUSH 10/22/16 22:15 10/24/16 19:56 (Tylenol) 650 mg Q4H PRN PO 10/22/16 22:15 (Zofran Inj) 4 mg Q6H PRN IVP 10/22/16 22:15 (Tylenol) 650 mg Q6H PRN PO 10/22/16 22:15 (Narcan Inj) 0.4 mg UNSCH PRN IV 10/22/16 22:15 (Senokot) 17.2 mg Q12H PRN PO 10/22/16 22:15 (Dulcolax Supp) 10 mg DAILY PRN RECTAL 10/22/16 22:15 (Pepcid) 20 mg BID PO 10/23/16 09:00 10/25/16 21:37 (Lipitor) 40 mg HS PO 10/23/16 21:00 10/25/16 21:37 (Lanoxin) 0.125 mg DAILY PO 10/24/16 09:00 10/25/16 09:02 (Lasix) 20 mg DAILY PO 10/25/16 09:00 10/25/16 09:02 (Cardizem) 30 mg QID PO 10/24/16 18:00 10/25/16 21:37 Allergies Allergies Coded Allergies No Known Allergies (Verified11/17/09) Review of Systems All other ROS: ROS reviewed as documented in chart Exam I&O / VS 10/25/16 10/25/16 10/26/16 15:00 23:00 07:00 Intake Total 860 ml 500 ml Output Total 1000 ml Balance 860 ml -500 ml Intake Oral 860 ml 500 ml Output Urine Total 1000 ml # Voids 4 # Bowel Movements 1 1 Vital Signs Date Time Temp Pulse Resp B/P Pulse Ox O2 Delivery O2 Flow Rate FiO2 10/26/16 06:00 86 10/26/16 05:00 86 10/26/16 04:00 84 10/26/16 03:55 88 16 113/68 97 10/26/16 03:00 74 10/26/16 02:00 78 10/26/16 01:00 78 10/26/16 00:00 98 10/25/16 23:52 86 16 118/74 99 10/25/16 23:00 77 10/25/16 22:00 72 10/25/16 21:00 88 10/25/16 20:00 88 10/25/16 19:55 98.8 92 16 129/81 96 10/25/16 19:00 67 10/25/16 18:00 92 10/25/16 17:00 94 10/25/16 16:00 76 10/25/16 16:00 98.3 81 20 138/66 97 10/25/16 15:00 76 10/25/16 14:00 78 10/25/16 13:00 80 10/25/16 12:00 86 10/25/16 12:00 98.6 16 104/63 98 10/25/16 11:00 87 10/25/16 10:03 98 21 10/25/16 10:00 80 10/25/16 09:00 90 10/25/16 08:00 98.7 90 18 123/85 98 10/25/16 08:00 96 General: Alert and Oriented, No acute distress Eye: EOMI Respiratory: Non-labored respirations Neurologic: Alert, Oriented, Normal motor, CN II-XII intact Psychiatric: Cooperative, Appropriate mood & affect, Normal judgement Exam Comments resting, easily arousable, ox 3, articulate, follows, eomi, vff, no focal weakness Objective Micro and Labs Laboratory Tests Test 10/26/16 04:37 Sodium Level 141 Potassium Level 3.7 Chloride Level 104 Carbon Dioxide Level 27.1 Anion Gap 10 Blood Urea Nitrogen 14 Creatinine 1.02 Estimat Glomerular Filtration 67 Rate Random Glucose 77 Calcium Level 8.6 Juvencio Saleh MD Oct 26, 2016 07:29
--- NOTE | 2016-10-26 07:32 | HHI.PR ---
Subjective Remarks doing ok..mentally sluggish. daughter present Objective Vitals slow responses heart reg. syst murmer to axilla lung cta abd s/nt ext trace edema Vital Signs Date Time Temp Pulse Resp B/P Pulse Ox O2 Delivery O2 Flow Rate FiO2 10/26/16 06:00 86 10/26/16 05:00 86 10/26/16 04:00 84 10/26/16 03:55 88 16 113/68 97 10/26/16 03:00 74 10/26/16 02:00 78 10/26/16 01:00 78 10/26/16 00:00 98 10/25/16 23:52 86 16 118/74 99 10/25/16 23:00 77 10/25/16 22:00 72 10/25/16 21:00 88 10/25/16 20:00 88 10/25/16 19:55 98.8 92 16 129/81 96 10/25/16 19:00 67 10/25/16 18:00 92 10/25/16 17:00 94 10/25/16 16:00 76 10/25/16 16:00 98.3 81 20 138/66 97 10/25/16 15:00 76 10/25/16 14:00 78 10/25/16 13:00 80 10/25/16 12:00 86 10/25/16 12:00 98.6 16 104/63 98 10/25/16 11:00 87 10/25/16 10:03 98 21 10/25/16 10:00 80 10/25/16 09:00 90 10/25/16 08:00 98.7 90 18 123/85 98 10/25/16 08:00 96 10/25/16 10/25/16 10/26/16 15:00 23:00 07:00 Intake Total 860 ml 500 ml Output Total 1000 ml Balance 860 ml -500 ml Intake Oral 860 ml 500 ml Output Urine Total 1000 ml # Voids 4 # Bowel Movements 1 1 Result Diagram: 10/22/16199910/26/16 0437 A/P Problem List: (1) New onset a-fib Status: Acute Plan: Pt presents with new afib/flutter and rvr. severe cardiomyopathy. Lexiscan ... shows no ischemia but EF 14% echo ef 20 percent with mod MR and TR ?chf encephalopathy per neuro. no cva on mri brain mra shows atherosclerosis. need to await further cardiology decisions for low EF. ?[facility] low dose lasix as she still has lower ext edema cont dig. ccb as tolerated. unable to tolerate bb due to low bp. lovenox given but on hold for possible LHC (2) Cardiomyopathy Status: Acute Plan: see above (3) Elevated troponin Status: Acute Plan: see above (4) Lower extremity edema Status: Acute Plan: see above Aidan Parisi MD Oct 26, 2016 07:32
--- NOTE | 2016-10-26 08:49 | PD.CARD.PN ---
Subjective Subjective Remarks doing well no complaints Objective Medications Active Medications Enoxaparin Sodium (Lovenox Inj) 80 mg ONCE ONCE SQ Last administered on 20:02; Admin Dose 80 MG; Start 10/25/16 at 19:00; Stop 10/25/16 at 19:01; Status DC Furosemide (Lasix) 20 mg DAILY PO Last administered on 10/25/16 09:02; Admin Dose 20 MG; Start 10/25/16 at 09:00 Vital Signs / I&O Vital Signs Date Time Temp Pulse Resp B/P Pulse Ox O2 Delivery O2 Flow Rate FiO2 10/26/16 08:29 99 21 10/26/16 07:40 98.2 51 19 128/83 99 10/26/16 06:00 86 10/26/16 05:00 86 10/26/16 04:00 84 10/26/16 03:55 88 16 113/68 97 10/26/16 03:00 74 10/26/16 02:00 78 10/26/16 01:00 78 10/26/16 00:00 98 10/25/16 23:52 86 16 118/74 99 10/25/16 23:00 77 10/25/16 22:00 72 10/25/16 21:00 88 10/25/16 20:00 88 10/25/16 19:55 98.8 92 16 129/81 96 10/25/16 19:00 67 10/25/16 18:00 92 10/25/16 17:00 94 10/25/16 16:00 76 10/25/16 16:00 98.3 81 20 138/66 97 10/25/16 15:00 76 10/25/16 14:00 78 10/25/16 13:00 80 10/25/16 12:00 86 10/25/16 12:00 98.6 16 104/63 98 10/25/16 11:00 87 10/25/16 10:03 98 21 10/25/16 10:00 80 10/25/16 09:00 90 I/O 10/25/16 10/25/16 10/25/16 10/26/16 10/26/16 10/26/16 06:59 14:59 22:59 06:59 14:59 22:59 Intake Total 240 ml 860 ml 500 ml Output Total 750 ml 1000 ml Balance -510 ml 860 ml -500 ml Intake Oral 240 ml 860 ml 500 ml IV Total 0 ml Output Urine Total 750 ml 1000 ml # Voids 4 # Bowel Movements 0 1 1 Physical Exam GENERAL: SKIN: Warm and dry. HEAD: Normocephalic. EYES: No scleral icterus. No injection or drainage. NECK: Supple, trachea midline. No JVD or lymphadenopathy. CARDIOVASCULAR: Regular rate and rhythm without murmurs, gallops, or rubs. RESPIRATORY: Breath sounds equal bilaterally. No accessory muscle use. GASTROINTESTINAL: Abdomen soft, non-tender, nondistended. MUSCULOSKELETAL: No cyanosis, or edema. BACK: Nontender without obvious deformity. No CVA tenderness. Laboratory Laboratory Tests Test 10/26/16 04:37 Sodium Level 141 MEQ/L Potassium Level 3.7 MEQ/L Chloride Level 104 MEQ/L Carbon Dioxide Level 27.1 MEQ/L Anion Gap 10 MEQ/L Blood Urea Nitrogen 14 MG/DL Creatinine 1.02 MG/DL Estimat Glomerular Filtration 67 ML/MIN Rate Random Glucose 77 MG/DL Calcium Level 8.6 MG/DL Imaging Last Impressions Myocardial Perfusion Scan Nuc Med 10/23/16 0000 Signed Impressions: Service Date/Time: Sunday, October 23, 2016 14:05 - CONCLUSION: Severe LV dilatation and dysfunction. No evidence of ischemia RISK CATEGORY: High (>3%% Annual Mortality Rate) Michael Gurrola MD Head Magnetic Resonance Angiography 10/23/16 0000 Signed Impressions: Service Date/Time: Sunday, October 23, 2016 14:07 - CONCLUSION: Moderate intracranial atherosclerotic vascular disease. Robert More MD FACR Brain MRI 10/23/16 0000 Signed Impressions: Service Date/Time: Sunday, October 23, 2016 14:07 - CONCLUSION: Central and cortical atrophy. There is no evidence for an ischemic event. Robert More MD FACR Head CT 10/22/161952 Signed Impressions: Service Date/Time: September 20:35 - CONCLUSION: Normal examination for a patient of this age. Hernesto Dukes MD Chest X-Ray 10/22/161952 Signed Impressions: Service Date/Time: September 19:50 - CONCLUSION: 1. Cardiomegaly. No focal consolidation or significant effusion. Hernesto Dukes MD Assessment and Plan Problem List: (1) New onset a-fib (2) Elevated troponin Assessment and Plan afib - start anticoagulation. rate controlled. NICM - EF severely reduced but fairly well compensated. global hypokinesis. SPECT no ischemia. mild troponin elevation due to CM and GFR. EKG no ischemia. I don't feel strongly that LHC is necessary. I had a lengthy discussion with the patient and daughter and they are agreeable. SBP will not tolerate ACEi. LifeVest for 3 months. repeat 2d echo in 2-2.5 month. if no improvement, then ICD. valvular heart disease - due to LV dilation. DC planning today d/w dr lovell. corine in op[place]. Soto Brown MD Oct 26, 2016 08:49
[2016-10-26] MEDS ORDERED: DEFIB EXTERNAL (08:50)
[2016-10-26] MEDS ORDERED: APIX5TAB PO (09:57)
[2016-10-26] MEDS ORDERED: FURO20TA PO (09:57)
[2016-10-26] MEDS ORDERED: DIGO0.12 PO (09:57)
[2016-10-26] MEDS ORDERED: CARD120C4 PO (09:57)
--- NOTE | 2016-10-26 09:58 | HHI.DCPOC ---
Discharge Care Plan Diagnosis: (1) Nonischemic cardiomyopathy (2) New onset a-fib (3) Mental status alteration Goals to Promote Your Health * To prevent worsening of your condition and complications * To maintain your health at the optimal level Directions to Meet Your Goals Take your medications as prescribed Follow your dietary instruction Follow activity as directed Keep your appointments as scheduled Take your immunizations and boosters as scheduled If your symptoms worsen call your PCP, if no PCP go to Urgent Care Center or Emergency Room Smoking is Dangerous to Your Health. Avoid second hand smoke Call the 24-hour hour crisis hotline for domestic abuse at Aidan Parisi MD Oct 26, 2016 09:58
[2016-10-26] MEDS ORDERED: APIXABAN 5 MG TABLET PO ONE (10:00)
[2016-10-26] MEDS: FAMOTIDINE 20 MG TAB PO SCH (10:01)
[2016-10-26] MEDS: DILTIAZEM HCL 30 MG TAB PO SCH ×2 (10:01→13:28)
[2016-10-26] MEDS: DIGOXIN 0.125 MG TAB PO SCH (10:01)
[2016-10-26] MEDS: FUROSEMIDE 20 MG TAB PO SCH (10:01)
--- NOTE | 2016-10-26 11:15 | HHI.FF ---
Face to Face Verification Diagnosis: (1) Nonischemic cardiomyopathy (2) New onset a-fib Physical Therapy Order: Evaluate and Treat, Improve ambulation Home Health Nursing Order: Signs/symptoms of disease process Medication education-adverse effect Nursing assessment with vital signs I have seen patient Janice Kesy on 10/26/16. My clinical findings support the need for the requested home health care services because: Limited ability to care for self I certify that my clinical findings support that this patient is homebound because: Poor cardiac reserve Aidan Parisi MD Oct 26, 2016 11:15
[2016-10-26 15:27] LABS: ANA SCREEN NEG (NEG)
== END 2016-10-26 18:52 | disposition home health service (06) | DRG 308 ==
LOC: NEPC 17:43 → NEDA 21:54 → HCIS 10-23 00:28
PROVIDERS: ADMIT Hospitalist; ATTEND Hospitalist
DX: I48.91 Unspecified atrial fibrillation (principal); G93.41 Metabolic encephalopathy; I42.9 Cardiomyopathy, unspecified; I11.0 Hypertensive heart disease with heart failure; D69.6 Thrombocytopenia, unspecified; E87.5 Hyperkalemia; I50.22 Chronic systolic (congestive) heart failure; R01.1 Cardiac murmur, unspecified; I67.2 Cerebral atherosclerosis; I48.92 Unspecified atrial flutter; F02.80 Dementia in other diseases classified elsewhere, unspecified severity, without behavioral disturbance, psychotic disturbance, mood disturbance, and anxiety; G30.9 Alzheimer's disease, unspecified; I34.0 Nonrheumatic mitral (valve) insufficiency; I49.3 Ventricular premature depolarization; I25.2 Old myocardial infarction
CPT/HCPCS: 70450; 70544; 70551; 71010; 78452; 80048; 80061; 80076; 80162; 81001; 82140; 82550; 82552; 82607; 83735; 83880; 84443; 84484; 85025; 85610; 85652; 85730; 86038; 86592; 93005; 93017; 93306; 95819; A9502; J1160; J1650; J2785